=== PATIENT | female | born 1970 | race Caucasian/White ===

== ENCOUNTER → 2020-02-06 | Outpatient (CLI) | payer OTHER ==
[~2020-02-06] MED LIST: ALBU8.5H8 INH; FEXO1TAB25 PO; THYR90TA PO; [UNRECOGNIZED DRUG - CODE] PO
== END | disposition home or self-care (01) ==
LOC: STAR 08:54
PROVIDERS: ATTEND Surgery
DX: Z01.812 Encounter for preprocedural laboratory examination (principal); Z20.828 Contact with and (suspected) exposure to other viral communicable diseases; K82.8 Other specified diseases of gallbladder
CPT/HCPCS: 36415; 87635

== ENCOUNTER 2020-02-12 08:16 | Day surgery (SDC) | payer OTHER ==
[~2020-02-12] VITALS: Ht 170.2 cm; Wt 88.0 kg
[2020-02-12] MEDS ORDERED: LACTATED RINGERS 1,000 ML IV STA (08:28)
[2020-02-12] MEDS ORDERED: CHLORHEXIDINE 15 ML UDC MM STA (08:28)
[2020-02-12] MEDS ORDERED: INDOCYANINE GREEN 25 MG VIAL IVPush ONE (08:30)
[2020-02-12 08:39] VITALS: BP 128/85
[2020-02-12] MEDS ORDERED: CHLORHEXIDINE 15 ML UDC ONE (08:44)
[2020-02-12] MEDS ORDERED: INDOCYANINE GREEN 25 MG VIAL ONE (08:55)
[2020-02-12] MEDS ORDERED: EPINEPHRINE 1 MG/ML, 1ML ONE (09:00)
[2020-02-12] MEDS ORDERED: BUPIVACAINE/PF 0.5% ONE (09:00)
[2020-02-12 09:04] LABS: HCG UR SG 1.015 (1.003-1.030)
[2020-02-12] MEDS ORDERED: FENTANYL PF 250 MCG/5ML ONE (09:22)
[2020-02-12] MEDS ORDERED: LIDOCAINE-MPF 2% ,5ML ONE (09:22)
[2020-02-12] MEDS ORDERED: SUCCINYLCHOLINE 20 MG/ML, 10ML ONE (09:22)
[2020-02-12] MEDS ORDERED: PROPOFOL 10 MG/ML, 20ML ONE (09:22)
[2020-02-12] MEDS ORDERED: LACTATED RINGERS 1,000 ML IV ONE (09:30)
[2020-02-12] MEDS ORDERED: ROCURONIUM 10 MG/ML,10ML ONE (10:48)
[2020-02-12] MEDS ORDERED: CEFAZOLIN 1,000 MG ONE ×2 (10:57)
[2020-02-12] MEDS ORDERED: DEXAMETHASONE 4 MG/ML, 1ML ONE ×3 (10:58)
[2020-02-12] MEDS ORDERED: FENTANYL PF 100 MCG/2ML IV PRN (11:30)
[2020-02-12] MEDS ORDERED: ACETAMINOPHEN 325 MG TABLET PO PRN (11:30)
[2020-02-12] MEDS ORDERED: ONDANSETRON 2MG/ML, 2ML IVPush PRN (11:30)
[2020-02-12] MEDS ORDERED: ALBUTEROL SULFATE 2.5 MG/3 ML NPPB PRN (11:30)
[2020-02-12] MEDS ORDERED: PROMETHAZINE 25 MG/ML, 1ML IVPush PRN (11:30)
[2020-02-12] MEDS ORDERED: ONDANSETRON 2MG/ML, 2ML ONE ×2 (11:46→12:23)
[2020-02-12] MEDS ORDERED: NEOSTIGMINE 1 MG/ML, 10ML ONE (11:46)
[2020-02-12] MEDS ORDERED: GLYCOPYRROLATE 0.2MG/1ML, 5ML ONE (11:46)
[2020-02-12] MEDS ORDERED: KETOROLAC 30 MG/1 ML ONE (11:46)
[2020-02-12] MEDS ORDERED: FENTANYL PF 100 MCG/2ML ONE (12:23)
[2020-02-12] MEDS ORDERED: PROMETHAZINE 25 MG/ML, 1ML ONE (12:23)
[2020-02-12] MEDS ORDERED: OXYcodone 5 MG/5 ML ORAL.SOL UDC ONE (12:23)
[2020-02-12] MEDS ORDERED: ACETAMINOPHEN 650 MG/20.3 ML UDC ONE (12:27)
[2020-02-12] MEDS: OXYcodone 5 MG/5 ML ORAL.SOL UDC PO PRN ×2 (12:37→16:36)
== END 2020-02-12 18:30 | disposition home or self-care (01) ==
LOC: OUT 08:16
PROVIDERS: ATTEND Surgery
DX: K82.4 Cholesterolosis of gallbladder (principal); J45.909 Unspecified asthma, uncomplicated; E03.9 Hypothyroidism, unspecified; E66.9 Obesity, unspecified; Z88.0 Allergy status to penicillin; Z68.30 Body mass index [BMI] 30.0-30.9, adult; Z79.899 Other long term (current) drug therapy; Z98.890 Other specified postprocedural states; Z72.89 Other problems related to lifestyle; Z82.49 Family history of ischemic heart disease and other diseases of the circulatory system
CPT/HCPCS: 47563; 81025; 88304; J0171; J0330; J0690; J1100; J1885; J2405; J2550; J2704; J2710; J3010; J7120; 36415; 87635

== ENCOUNTER → 2020-10-06 | Outpatient (CLI) | payer OTHER | END | disposition home or self-care (01) | LOC: CFH 07:54 | PROVIDERS: ATTEND Obstetrics & Gynecology | DX: Z12.31 Encounter for screening mammogram for malignant neoplasm of breast (principal) | CPT/HCPCS: 77063; 77067 ==